=== PATIENT | female | born 1970 | race Caucasian/White ===

== ENCOUNTER 2019-03-01 13:12 | Emergency (ER) | payer SELFPAY ==
--- OUTSIDE RECORDS SUMMARY | 2019-03-01 13:27 | XMS REPORT | Continuity of Care Document ---
:1970 External Reference #:[id number] Author Name Adriana Burleson N.P. 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 Problems Description No Information Available Social History Type Date Description Comments Sex Unknown Tobacco Use Start: Unknown End: Unknown Patient is a former smoker Smoking Status Reviewed: 02/21/19 Patient is a former smoker Allergies, Adverse Reactions, Alerts Description No Known Drug Allergies Medications Description No Active Medications Immunizations Description No Information Available Vital Signs Date Vital Result Comment 02/21/2019 4:02pm Height 66 inches 5'6" Weight 179.00 lb Heart Rate 76 /min BP Systolic 124 mmHg BP Diastolic 84 mmHg O2 % BldC Oximetry 99 % BMI (Body Mass Index) 28.9 kg/m2 07/07/2018 8:11am Height 66 inches 5'6" Weight 179.00 lb Heart Rate 78 /min BP Systolic 118 mmHg BP Diastolic 76 mmHg O2 % BldC Oximetry 96 % BMI (Body Mass Index) 28.9 kg/m2 Last Menstrual Period 5382005 Results Test Acquired Date Facility Test Result H/L Range Note Urinalysis Profile 02/13/2019 [facility] Urine Color Yellow [address] [place], [place] [id number] [phone] Urine Appearance Turbid Urine Specific [place] 1.023 Normal 1.010-1.030 Urine pH 5.0 Normal 5-9 Urine Urobilinogen Negative Negative Urine Ketones Negative Negative Urine Protein Negative Negative Urine Leukocytes 3+ Abnormal Negative Urine Blood 2+ Abnormal Negative Urine Nitrite Negative Negative Urine Bilirubin Negative Negative Urine Glucose Negative Negative Urine White Blood Cell 3+(>20/hpf) Abnormal Absent Urine Red Blood Cell 1+(3-5/hpf) Abnormal Absent Urine Bacteria Absent Absent Urine Squamous Epithelial Cell Present Abnormal Absent Urine Culture And 02/13/2019 [facility] Urine Culture SEE RESULT [address] [place] [address] [phone] Urine Culture And 11/29/2018 [facility] Urine Culture SEE RESULT [address] [place] [address] [phone] Urinalysis Profile 11/29/2018 [facility] Urine Color Straw [address] [place] [address] [phone] Urine Appearance Cloudy Urine Specific [place] 1.003 Low 1.010-1.030 Urine pH 6.0 Normal 5-9 Urine Urobilinogen Negative Negative Urine Ketones Negative Negative Urine Protein Negative Negative Urine Leukocytes 3+ Abnormal Negative Urine Blood 2+ Abnormal Negative Urine Nitrite Negative Negative Urine Bilirubin Negative Negative Urine Glucose Negative Negative Urine White Blood Cell 3+(>20/hpf) Abnormal Absent Urine Red Blood Cell Trace(0-2/hpf) Absent Urine Bacteria 1+ Abnormal Absent Urine Squamous Epithelial Cell Present Abnormal Absent 1 [id number] 2 SEE RESULT BELOW Name: NATALIENUNEREIDA : [address]: Brando Castro MD Acct: [id number] Unit: [id number] AGE: 48 Location: [facility] Re02/13/19 SEX: F Status: REG REF SPEC: [id number] SAEED: 02/13/[address] [facility] [address]: Brando Castro MD REQ: [id number] RECD: 02/13/19 STATUS:COMP _ SOURCE: URINE SPDESC: ORDERED: Urine Culture COMMENTS: [id number] QUERIES: Urine Source: Random Procedure Result Reported Site Urine Culture Final 02/15/19- 0810 ML Organism 1 ESCHERICHIA COLI [place] Count 75-100,000 (Many) CFU/ML 1. ESCHERICHIA COLI M.I.C. RX --------- ------ Ampicillin 8 S Cefazolin <=4 S Cefepime <=1 S Ceftriaxone <=1 S Ciprofloxacin <=0.25 S Gentamicin <=1 S Levofloxacin <=0.12 S Meropenem <=0.25 S Nitrofurantoin <=16 S Tetracycline <=1 S Pipercillin/Tazobactam <=4 S Trimethoprim/Sulfamethoxazole <=20 S Amoxicillin/Clavulanic Acid <=2 S Aztreonam <=1 S Contact the Microbiology Department for any additional antibiotic reporting. * - Main Lab . END OF REPORT DEPARTMENT OF PATHOLOGY, [address] [place] [address] Jareth Mendiola M.D. Director LAURA # [id number] 3 SEE RESULT BELOW Name: NEREIDA ECHOLS : [address]: Brando Castro MD Acct: [id number] Unit: [id number] AGE: 48 Location: [facility] Re11/29/18 SEX: F Status: REG REF SPEC: [id number] SAEED: 11/29/[address]: Brando Castro MD REQ: [id number] RECD: 11/29/18 STATUS: COMP _ SOURCE: URINE SPDESC: ORDERED: Urine Culture Urine Source: Random Procedure Result Reported Site Urine Culture Final 12/01/18- 832 ML Organism 1 ESCHERICHIA COLI [place] Count 25-50,000 (Moderate) CFU/ML 1. ESCHERICHIA COLI M.I.C. RX --------- ------ Ampicillin 4 S Cefazolin <=4 S Cefepime <=1 S Ceftriaxone <=1 S Ciprofloxacin <=0.25 S Gentamicin <=1 S Levofloxacin <=0.12 S Meropenem <=0.25 S Nitrofurantoin <=16 S Tetracycline <=1 S Pipercillin/Tazobactam <=4 S Trimethoprim/Sulfamethoxazole <=20 S Amoxicillin/Clavulanic Acid <=2 S Aztreonam <=1 S Contact the Microbiology Department for any additional antibiotic reporting. * ML - Main Lab . END OF REPORT DEPARTMENT OF PATHOLOGY, [address] [place] [address] Jareth Mendiola M.D. Director [facility] # [id number] Procedures Date Code Description Status 01/04/2018 53732802 Mammogram Completed 12/21/2016 53426287 Mammogram Completed Medical Devices Description No Information Available Encounters Description No Information Available Assessments Description No Information Available Plan of Treatment Future Appointment(s):03/23/2019 2:30 pm - Brando Castro MD at [facility] Functional Status Description No Information Available Mental Status Description No Information Available Referrals Description No Information Available
--- OUTSIDE RECORDS SUMMARY | 2019-03-01 13:27 | XMS REPORT | Continuity of Care Document ---
:1970 External Reference #:[id number] Author Name SUNNY Jose Address [address] [facility] [address] [place] [address] Problems Active Problems Provider Date Body mass index 25-29 - overweight MARK ANTHONY Roberson Onset: 08/09/2018 Varicose veins of lower extremity Lorne Vuong Onset: 12/13/2017 Social History Type Date Description Comments Sex Unknown ETOH Use Occasionally consumes alcohol Tobacco Use Start: Unknown Patient has never smoked Allergies, Adverse Reactions, Alerts Description No Known Drug Allergies Medications Active Medications SIG Qnty Indications Ordering Provider Date No Active Medications Unknown 12/13/2017 Compression Stockings Wear Daily 1Pair I83.891 Lorne Vuong 2017 For 6 Months 20-30[facility] Thigh High Misc Immunizations CPT Code Status Date Vaccine Lot # [id number] Refused 01/24/2019 Influenza Vaccine 45216-311-00 70649 Refused 05/10/2018 Influenza Vaccine 64488-252-98 Vital Signs Date Vital Result Comment 01/24/2019 1:21pm Height 66 inches 5'6" Weight 180.00 lb BP Systolic 164 mmHg BP Diastolic 102 mmHg BMI (Body Mass Index) 29.0 kg/m2 Heart Rate 83 /min Respiratory Rate 18 /min 08/09/2018 3:02pm Height 66 inches 5'6" Weight 176.00 lb BP Systolic 159 mmHg BP Diastolic 100 mmHg BMI (Body Mass Index) 28.4 kg/m2 Heart Rate 81 /min Respiratory Rate 18 /min Results Description No Information Available Procedures Date Code Description Status 01/24/2019 27166 Injection Sclerosing Solution Multiple Veins Same Leg Completed Medical Devices Description No Information Available Encounters Type Date Location Provider Dx Diagnosis Office Visit 08/09/2018 [facility] MARK ANTHONY Roberson I83.891 Varicose veins of r 3:00p low extrem with other complications Z68.28 Body mass index (BMI) 28.0-28.9, adult Assessments Date Code Description Provider 01/24/2019 I83.891 Varicose veins of right lower extremity with SUNNY Jose other complicat 01/24/2019 Z68.29 Body mass index (BMI) 29.0-29.9, adult SUNNY Jose 01/24/2019 Z68.37 Body mass index (BMI) 37.0-37.9, adult SUNNY Jose 08/09/2018 I83.891 Varicose veins of right lower extremity with MARK ANTHONY Roberson other complicat 08/09/2018 Z68.28 Body mass index (BMI) 28.0-28.9, adult MARK ANTHONY Roberson Plan of Treatment Future Appointment(s):02/17/2019 3:00 pm - [facility] Functional Status Description No Information Available Mental Status Description No Information Available Referrals Description No Information Available
--- OUTSIDE RECORDS SUMMARY | 2019-03-01 13:27 | XMS REPORT | Continuity of Care Document ---
:1970 External Reference #:[id number] Author Name MARK ANTHONY Roberson Address [address] [facility] [address] Problems Active Problems Provider Date Varicose veins of lower extremity Lorne Vuong Onset: 12/13/2017 Body mass index 25-29 - overweight MARK ANTHONY Roberson Onset: 08/09/2018 Social History Type Date Description Comments Sex [...] CPT Code Status Date Vaccine Lot # [id number] Refused 01/24/2019 Influenza Vaccine 83327-135-75 [id number] Refused 05/10/2018 Influenza Vaccine 34665-345-24 Vital Signs Date Vital Result Comment 01/24/2019 [...] Information Available Procedures Date Code Description Status 02/17/2019 42512 Injection Sclerosing Solution Multiple Veins Same Leg Completed 01/24/2019 21501 Injection Sclerosing Solution Multiple Veins Same Leg Completed Medical Devices Description No Information Available Encounters Description No Information Available Assessments Date Code Description Provider 02/17/2019 I83.891 Varicose veins of right lower extremity with MARK ANTHONY Roberson other complicat 01/24/2019 I83.891 Varicose veins of right lower extremity with SUNNY Jose other complicat 01/24/2019 Z68.29 Body mass index (BMI) 29.0-29.9, adult SUNNY Jose Plan of Treatment Future Appointment(s):03/16/2019 2:00 pm - L[facility] Vuong [facility] Functional Status Description No Information Available Mental Status Description No Information Available Referrals Description No Information Available
--- NOTE | 2019-03-01 13:30 | UC ---
Head Injury HPI - HPI Summary HPI Summary: 48 yo female presents with head injury. She tells me that yesterday she was walking in a parking lot and slipped on the ice hitting the back left of her head. No LOC. She was able to get to her feet and resume her day. Has had a mild headache since that time, but is relieved with ibuprofen. Today she noticed two small bumps where she hit her head and she is concerned there is something "more going on" and she "does not want to from a brain bleed". Denies dizziness, vision changes, numbness, tingling, weakness, slurred speech, n/v, SOB, chest pain. - History Of Current Complaint Chief Complaint: UCHeadInjury Stated Complaint: HEAD INJURY Time Seen by Provider: 03/01/19 13:30 Hx Obtained From: Patient Severity Currently: Mild Severity Initially: Mild Pain Intensity: 2 Pain Scale Used: 0-10 Numeric - Allergies/Home Medications Allergies/Adverse Reactions: Allergies Allergy/AdvReac Type Severity Reaction Status Date / Time No Known Allergies Allergy Verified 03/01/19 13:29 PMH/Surg Hx/FS Hx/Imm Hx - Additional Past Medical History Additional PMH: None - Surgical History Surgical History: Yes Surgery Procedure, Year, and Place: 3 C-SECTIONS. BILATERAL CARPAL TUNNEL RELEASE - Family History Known Family History: Positive: Hypertension - Social History Occupation: Employed Full-time Lives: With Family Alcohol Use: Weekly Alcohol Amount: 2 GLASSES WINE PER WEEK Substance Use Type: None Smoking Status (MU): Former Smoker Amount Used/How Often: <1 PPD X 15 YEARS When Did the Patient Quit Smoking/Using Tobacco: 2011 Review of Systems All Other Systems Reviewed And Are Negative: No Constitutional: Positive: Negative Skin: Positive: Negative Eyes: Positive: Negative ENT: Positive: Negative Respiratory: Positive: Negative Cardiovascular: Positive: Negative Gastrointestinal: Positive: Negative Genitourinary: Positive: Negative Motor: Positive: Negative Neurovascular: Positive: Negative Musculoskeletal: Positive: Negative Neurological: Positive: Headache Psychological: Positive: Negative Physical Exam - Summary Physical Exam Summary: GENERAL: NAD. WDWN. No pain distress. SKIN: See head HEENT: Head: Left parietal scalp with two small 5mm superficial hematomas. Mild TTP. No open wound. No raccoon eyes or vasquez sign. Eyes: PERRLA. EOM intact. Ears: Hearing grossly normal. TMs intact, no bulging, erythema, or edema. No hemotympanum Nose: Nasal mucosa pink and moist. NTTP maxillary and frontal sinus. Throat: Posterior oropharynx without exudates, erythema, or tonsillar enlargement. Uvula midline. NECK: Supple. Nontender. FROM CHEST: CTAB. No r/r/w. No accessory muscle use. Breathing comfortably and in no distress. CV: RRR. Pulses intact. Brisk cap refill. MSK: FROM in B/L UEs and LEs with symmetric strength. NEURO: A&Ox3. 3 word recall, remote, recent memory, ability to follow 2-step directions, and attention intact. CN: II: Peripheral christopher intact. Vision normal. III, IV, : EOMI. No nystagmus. PERRLA. V: Sensations intact and symmetric. Opens mouth and clenches teeth. VII: No facial asymmetry. Forehead wrinkles. Grins, shuts eyes, frowns, puffs cheeks. VIII: Hearing intact to finger rub. IX, X: Swallows and coughs. Uvula midline. XI: Shrugs shoulders. Turns head against resistance. XII: No tongue deviation [id number] are intact. Gait with normal base. Romberg: maintains balance, no pronator drift. Normal speech. No facial drooping. PSYCH: Age appropriate behavior. Triage Information Reviewed: Yes Vital Signs: Initial Vital Signs Temp 98 F 03/01/19 13:26 Pulse 77 03/01/19 13:26 Resp 17 03/01/19 13:26 BP 161/104 03/01/19 13:26 Pulse Ox 100 03/01/19 13:26 Vital Signs (72 hours) 03/01/19 03/01/19 13:26 13:39 Temperature 98 F Pulse Rate 77 Respiratory 17 Rate Blood Pressure 161/104 158/76 (mmHg) O2 Sat by Pulse 100 Oximetry Vital Signs Reviewed: Yes Diagnostics - Radiology Brain CT Radiology Interpretation Completed By: Radiologist Summary of Radiographic Findings: IMPRESSION: No acute intracranial normality. Head Injury Course/Dx - Course Course Of Treatment: Recheck BP much improved. Discussed low impact injury with normal neuro exam and low suspicion for intracranial process - pt continues to be concerned and is requesting imaging today. CT as above. Suspect headache from head injury and small hematomas. Advised to apply ice, rest and avoid mental strain, and continue with ibuprofen as directed. - Differential Dx/Diagnosis Provider Diagnosis: Head injury Discharge ED - Sign-Out/Discharge Documenting (check all that apply): Patient Departure All imaging exams completed and their final reports reviewed: Yes - Discharge Plan Condition: Stable Disposition: HOME Patient Education Materials: Head Injury (ED) Referrals: Emiliano Lewis MD [Primary Care Provider] - Additional Instructions: If you develop a fever, shortness of breath, chest pain, new or worsening symptoms - please call your PCP or go to the ED immediately. Your blood pressure was high at todays visit. Please see your primary provider within 4 weeks for recheck and re-evaluation. Your head CT was normal today. May continue to take ibuprofen as directed for your headache. Rest and avoid mental strain/stress - your symptoms should improve with rest and time. - Billing Disposition and Condition Condition: STABLE Disposition: Home
[2019-03-01 13:39] VITALS: BP 158/76
== END 2019-03-01 14:11 | disposition home or self-care (01) ==
LOC: UCEAST 13:12
DX: S09.90XA Unspecified injury of head, initial encounter (principal); Z87.891 Personal history of nicotine dependence; W00.2XXA Other fall from one level to another due to ice and snow, initial encounter; Y93.01 Activity, walking, marching and hiking; Y92.481 Parking lot as the place of occurrence of the external cause
CPT/HCPCS: 70450; 99211; G0463